=== PATIENT | male | born 1940 | race Caucasian/White ===

== ENCOUNTER 2016-09-25 13:43 | Inpatient (IN) | payer OTHER, MEDICARE ==
[~2016-09-25] VITALS: Ht 182.9 cm; Wt 128.3 kg
[2016-09-25 14:46] LABS: EOSINOPHIL (%) 0.1 % (0-5); HEMATOCRIT 38.8 % (38.0-50.0); IMMATURE GRANULOCYTE (%) 0.3 % (0.0-0.7); IMMATURE GRANULOCYTE COUNT 0.5 K/uL; LYMPHOCYTE COUNT 0.9 K/uL (1.0-2.8); MCH 28.7 PG (29.0-34.0); MCHC 32.2 G/DL (30.0-36.0); MEAN PLAT.VOLUME 10.9 uM^3 (9.0-12.4); MONOCYTE (%) 7.2 % (3-12); MONOCYTE COUNT 1.3 K/uL (0-0.8); NEUTROPHIL (%) 87.6 % (45-76); PLATELET COUNT 175 K/uL (156-360); RBC DIS.WIDTH-CV 13.7 % (11.8-14.6); RBC DIS.WIDTH-SD 43.4 % (39-53); RED BLOOD COUNT 4.36 M/uL (4.00-5.50); WHITE BLOOD COUNT 18.2 K/uL (4.1-10.2)
[2016-09-25 14:56] LABS: CHLORIDE 93 mEq/L (99-109); POTASSIUM 4.9 mEq/L (3.7-5.4); SODIUM 132 mEq/L (136-147)
[2016-09-25 14:58] LABS: GLUCOSE 287 mg/dL (70-99)
[2016-09-25 14:59] LABS: GLUCOSE (STRIP) 100; KETONES 40
[2016-09-25 14:59] LABS: ANION GAP 12 MEQ/L (2-14)
[2016-09-25 15:02] LABS: GFR ESTIMATE (CALCULATED) > 59 mL/min/
[2016-09-25 15:03] LABS: UREA NITROGEN (BUN) 21 mg/dL (9-23)
[2016-09-25 15:14] LABS: ADD MIUA? YES; BILIRUBIN LARGE; BLOOD LARGE; COLOR RED ((YELLOW)); LEUKOCYTES LARGE; NITRITE POSITIVE; PROTEIN (STRIP) 300; SPECIFIC GRAVITY 1.028 (1.000-1.030)
[2016-09-25 15:34] LABS: ICTOTEST NEGATIVE
[2016-09-25 15:35] LABS: RED BLOOD CELLS TNTC /HPF (0-5); UCUL ADDED? YES
[2016-09-25] MEDS ORDERED: METOPROLOL TART50 MG PO (17:27)
[2016-09-25] MEDS ORDERED: HUMULIN N100 UNITS/ SC (17:27)
[2016-09-25] MEDS ORDERED: AMLODIPINE-BEN1 EAC3 PO (17:27)
[2016-09-25] MEDS ORDERED: PROAIR HFA8.5 GM IH (17:28)
[2016-09-25] MEDS ORDERED: CLARITIN,ALAVAR10 MG PO (17:28)
[2016-09-25] MEDS ORDERED: ASPIR-TRIN325 M1 PO (17:28)
[2016-09-25] MEDS ORDERED: ATORVASTATIN CA20 MG PO (17:28)
[2016-09-25 19:24] LABS: TOTAL BILIRUBIN 1.6 mg/dL (0.0-1.0)
[2016-09-25 19:25] LABS: ALKALINE PHOSPHATASE 114 IU/L (3-129)
[2016-09-25 19:27] LABS: DIRECT BILIRUBIN 0.7 mg/dL (0.0-0.3)
[2016-09-25 22:25] VITALS: BP 136/64
[2016-09-26 06:56] LABS: EOSINOPHIL (%) 0.5 % (0-5); HEMATOCRIT 32.3 % (38.0-50.0); IMMATURE GRANULOCYTE (%) 0.1 % (0.0-0.7); LYMPHOCYTE COUNT 1.2 K/uL (1.0-2.8); MCH 28.5 PG (29.0-34.0); MCHC 31.9 G/DL (30.0-36.0); MCV 89.5 FL (86-99); MEAN PLAT.VOLUME 11.6 uM^3 (9.0-12.4); MONOCYTE (%) 13.2 % (3-12); MONOCYTE COUNT 1.1 K/uL (0-0.8); NEUTROPHIL (%) 70.8 % (45-76); NEUTROPHIL COUNT 5.6 K/uL (1.8-6.4); PLATELET COUNT 180 K/uL (156-360); RBC DIS.WIDTH-CV 13.8 % (11.8-14.6); RBC DIS.WIDTH-SD 45.2 % (39-53); RED BLOOD COUNT 3.61 M/uL (4.00-5.50)
[2016-09-26 07:14] LABS: ALKALINE PHOSPHATASE 80 IU/L (3-129); ANION GAP 10 MEQ/L (2-14); CHLORIDE 102 MEQ/L (99-109); DIRECT BILIRUBIN 0.2 mg/dL (0.0-0.3); GFR ESTIMATE (CALCULATED) > 59 mL/min/; GLUCOSE 224 mg/dL (70-99); POTASSIUM 4.1 MEQ/L (3.7-5.4); SAMPLE HEMOLYSIS CHECK 0; SAMPLE ICTERIC CHECK 0; SAMPLE LIPEMIA CHECK 0; SODIUM 138 MEQ/L (136-147); TOTAL BILIRUBIN 0.7 MG/DL (0.0-1.0); UREA NITROGEN (BUN) 16 mg/dL (9-23)
[2016-09-26 07:55] VITALS: BP 131/63
[2016-09-26 11:53] VITALS: BP 148/87
[2016-09-26 16:46] LABS: POINT-OF-CARE METER ID UU13113725
[2016-09-26 16:52] VITALS: BP 121/61
[2016-09-26 21:52] VITALS: BP 144/66
[2016-09-26 23:54] VITALS: BP 121/65
[2016-09-27 06:19] LABS: POINT-OF-CARE METER ID UU13113725
[2016-09-27 08:33] VITALS: BP 126/62
[2016-09-27 12:07] LABS: HEMATOCRIT 34.2 % (38.0-50.0); MCH 28.9 PG (29.0-34.0); MCHC 32.2 G/DL (30.0-36.0); MEAN PLAT.VOLUME 10.8 uM^3 (9.0-12.4); PLATELET COUNT 186 K/uL (156-360); RBC DIS.WIDTH-CV 13.7 % (11.8-14.6); RBC DIS.WIDTH-SD 45.4 % (39-53); WHITE BLOOD COUNT 5.4 K/uL (4.1-10.2)
[2016-09-27] MEDS ORDERED: TAMSULOSIN HCL0.4 MG PO (12:41)
[2016-09-27] MEDS ORDERED: CEFTIN500 MG PO (12:41)
[2016-09-27] MEDS ORDERED: FINASTERIDE5 MG PO (12:41)
[2016-09-27 12:48] LABS: ANION GAP 11 MEQ/L (2-14); CHLORIDE 99 MEQ/L (99-109); GFR ESTIMATE (CALCULATED) > 59 mL/min/; GLUCOSE 253 mg/dL (70-99); POTASSIUM 4.5 MEQ/L (3.7-5.4); SAMPLE HEMOLYSIS CHECK 1; SAMPLE ICTERIC CHECK 0; SAMPLE LIPEMIA CHECK 0; SODIUM 138 MEQ/L (136-147); UREA NITROGEN (BUN) 7 mg/dL (9-23)
[2016-09-29 10:02] LABS: POINT-OF-CARE METER ID UU13113725
== END 2016-09-27 14:42 | disposition home or self-care (01) | DRG 690 ==
LOC: EME 13:43 → EDOF 19:29 → 5EAST 22:15
PROVIDERS: Family Medicine; Internal Medicine
DX: N39.0 Urinary tract infection, site not specified (principal); E87.1 Hypo-osmolality and hyponatremia; R78.81 Bacteremia; B96.20 Unspecified Escherichia coli [E. coli] as the cause of diseases classified elsewhere; R31.0 Gross hematuria; N40.0 Benign prostatic hyperplasia without lower urinary tract symptoms; N42.89 Other specified disorders of prostate; E11.9 Type 2 diabetes mellitus without complications; I10 Essential (primary) hypertension; E78.5 Hyperlipidemia, unspecified; J44.9 Chronic obstructive pulmonary disease, unspecified; L30.4 Erythema intertrigo; R59.1 Generalized enlarged lymph nodes; E66.9 Obesity, unspecified; Z79.82 Long term (current) use of aspirin; Z87.891 Personal history of nicotine dependence; Z79.4 Long term (current) use of insulin; Z68.38 Body mass index [BMI] 38.0-38.9, adult
CPT/HCPCS: 74176; 80048; 80076; 81003; 82948; 83605; 85025; 85027; 87040; 87077; 87086; 87186; 87801; 94640; 99202; 99281; 99284; G0103; J0696; J1815; J7030; J7050

== ENCOUNTER 2016-11-11 20:21 | Observation (INO) | payer OTHER, MEDICARE ==
[~2016-11-11] VITALS: Ht 182.9 cm; Wt 127.0 kg
[~2016-11-11 20:21] MED LIST: AMLODIPINE-BEN1 EAC3 PO; ASPIR-TRIN325 M1 PO; ATORVASTATIN CA20 MG PO; CEFTIN500 MG PO; CLARITIN,ALAVAR10 MG PO; FINASTERIDE5 MG PO; HUMULIN N100 UNITS/ SC; METOPROLOL TART50 MG PO; PROAIR HFA8.5 GM IH; TAMSULOSIN HCL0.4 MG PO
[2016-11-11 20:56] LABS: EOSINOPHIL (%) 0.6 % (0-5); EOSINOPHIL COUNT 0.1 K/uL (0-0.3); HEMATOCRIT 36.8 % (38.0-50.0); IMMATURE GRANULOCYTE (%) 0.1 % (0.0-0.7); IMMATURE GRANULOCYTE COUNT 0.1 K/uL; LYMPHOCYTE COUNT 0.9 K/uL (1.0-2.8); MCH 27.9 PG (29.0-34.0); MCHC 32.9 G/DL (30.0-36.0); MONOCYTE (%) 8.4 % (3-12); MONOCYTE COUNT 0.8 K/uL (0-0.8); NEUTROPHIL (%) 81.4 % (45-76); NEUTROPHIL COUNT 8.1 K/uL (1.8-6.4); PLATELET COUNT 183 K/uL (156-360); RBC DIS.WIDTH-SD 39.4 % (39-53); RED BLOOD COUNT 4.33 M/uL (4.00-5.50)
[2016-11-11 21:06] LABS: CHLORIDE 99 mEq/L (99-109); POTASSIUM 4.2 mEq/L (3.7-5.4); SODIUM 135 mEq/L (136-147)
[2016-11-11 21:08] LABS: GLUCOSE 251 mg/dL (70-99)
[2016-11-11 21:09] LABS: ANION GAP 13 MEQ/L (2-14)
[2016-11-11 21:10] LABS: TOTAL BILIRUBIN 0.8 mg/dL (0.0-1.0)
[2016-11-11 21:11] LABS: ALKALINE PHOSPHATASE 107 IU/L (3-129); INTER. NORMALIZED RATIO 1.1; PROTHROMBIN TIME 11.6 (9.2-11.2); PTT 24.3 (25-32)
[2016-11-11 21:12] LABS: GFR ESTIMATE (CALCULATED) > 59 mL/min/
[2016-11-11 21:13] LABS: UREA NITROGEN (BUN) 19 mg/dL (9-23)
[2016-11-11 21:16] LABS: TROP-I INTERPRETATION NEGATIVE; TROPONIN-I < 0.01 ng/mL (0.0-0.30)
[2016-11-12 03:29] LABS: HEMATOCRIT 33.8 % (38.0-50.0); MCH 27.5 PG (29.0-34.0); MCHC 32.2 G/DL (30.0-36.0); MCV 85.4 FL (86-99); MEAN PLAT.VOLUME 10.9 uM^3 (9.0-12.4); PLATELET COUNT 172 K/uL (156-360); RBC DIS.WIDTH-SD 39.7 % (39-53); RED BLOOD COUNT 3.96 M/uL (4.00-5.50); WHITE BLOOD COUNT 10.7 K/uL (4.1-10.2)
[2016-11-12 03:56] LABS: TROP-I INTERPRETATION NEGATIVE; TROPONIN-I < 0.01 ng/mL (0.0-0.30)
[2016-11-12 06:26] LABS: POINT-OF-CARE METER ID UU14100415
[2016-11-12 08:31] LABS: POINT-OF-CARE METER ID UU14100415
[2016-11-12 09:27] LABS: TROP-I INTERPRETATION NEGATIVE; TROPONIN-I < 0.01 ng/mL (0.0-0.30)
[2016-11-12] MEDS ORDERED: ATORVASTATIN CA20 MG PO (09:49)
[2016-11-12] MEDS ORDERED: AMLODIPINE-BEN1 EAC3 PO (09:52)
[2016-11-12] MEDS ORDERED: TAMSULOSIN HCL0.4 MG PO (09:52)
[2016-11-12] MEDS ORDERED: FINASTERIDE5 MG PO (09:52)
[2016-11-12] MEDS ORDERED: HUMULIN N100 UNITS/ SC (09:53)
[2016-11-12] MEDS ORDERED: PROAIR HFA8.5 GM IH (09:54)
[2016-11-12] MEDS ORDERED: LOPRESSOR50 MG PO (09:54)
[2016-11-12] MEDS ORDERED: MIRALAX255 GM PO (09:56)
[2016-11-12] MEDS ORDERED: CLOBETASOL PROP60 GM TP (09:56)
[2016-11-12] MEDS ORDERED: TYLENOL EXTRA500 MG PO (09:56)
[2016-11-12] MEDS ORDERED: CIPRO500 MG PO (11:39)
[2016-11-12 13:26] VITALS: BP 139/59
== END 2016-11-12 13:25 | disposition home or self-care (01) ==
LOC: EME 20:21 → EDOF 22:34
PROVIDERS: Emergency Medicine; Internal Medicine; Physician Assistant
DX: R31.0 Gross hematuria (principal); N40.0 Benign prostatic hyperplasia without lower urinary tract symptoms; N39.0 Urinary tract infection, site not specified; B96.20 Unspecified Escherichia coli [E. coli] as the cause of diseases classified elsewhere; Z87.440 Personal history of urinary (tract) infections; R10.2 Pelvic and perineal pain; R55 Syncope and collapse; I10 Essential (primary) hypertension; E11.9 Type 2 diabetes mellitus without complications; J44.9 Chronic obstructive pulmonary disease, unspecified; Z79.82 Long term (current) use of aspirin; Z88.8 Allergy status to other drugs, medicaments and biological substances; Z87.891 Personal history of nicotine dependence; Z80.8 Family history of malignant neoplasm of other organs or systems
CPT/HCPCS: 71010; 80053; 81003; 82948; 84484; 85025; 85027; 85610; 85730; 86850; 86900; 86901; 93005; 99281; 99285; G0378; J1815; J7030

== ENCOUNTER → 2016-11-16 | Outpatient (CLI) | payer MEDICARE ==
[~2016-11-16] MED LIST changes: +CIPRO500 MG PO; +CLOBETASOL PROP60 GM TP; +LOPRESSOR50 MG PO; +MIRALAX255 GM PO; +TYLENOL EXTRA500 MG PO
== END | disposition home or self-care (01) ==
LOC: CDC 12:31
DX: Z01.810 Encounter for preprocedural cardiovascular examination (principal); R31.0 Gross hematuria; Z87.440 Personal history of urinary (tract) infections
CPT/HCPCS: 93000

== ENCOUNTER 2016-11-19 17:08 | Emergency (ER) | payer OTHER, MEDICARE ==
[~2016-11-19] VITALS: Ht 182.9 cm; Wt 126.9 kg
[2016-11-19 18:23] VITALS: BP 139/66
== END 2016-11-19 18:42 | disposition home or self-care (01) ==
LOC: EME 17:08
PROC: 0T9B70Z Drainage of Bladder with Drainage Device, Via Natural or Artificial Opening (ICD-10-PCS; principal; 2016-11-19)
DX: R33.9 Retention of urine, unspecified (principal); Z98.890 Other specified postprocedural states; I10 Essential (primary) hypertension; E11.9 Type 2 diabetes mellitus without complications; E78.5 Hyperlipidemia, unspecified; J44.9 Chronic obstructive pulmonary disease, unspecified; Z79.4 Long term (current) use of insulin; Z87.891 Personal history of nicotine dependence
CPT/HCPCS: 99281; 99284

== ENCOUNTER 2016-12-10 07:52 | Day surgery (SDC) | payer OTHER, MEDICARE ==
[~2016-12-10] VITALS: Ht 182.9 cm; Wt 123.3 kg
[2016-12-10 08:26] LABS: POINT-OF-CARE METER ID UU14174212
[2016-12-10 08:43] VITALS: BP 131/66
[2016-12-10] MEDS ORDERED: DOCUSATE SODIU100 MG PO (12:35)
[2016-12-10] MEDS ORDERED: ENDOCET 5-3251 EACH PO (12:35)
[2016-12-10] MEDS ORDERED: CLOTRIMAZOLE-BE15 GM TP (12:35)
[2016-12-10] MEDS ORDERED: CIPRO500 MG PO (12:45)
[2016-12-10 13:22] LABS: POINT-OF-CARE METER ID UU13113675; POINT-OF-CARE USER ID 515036437
[2016-12-10 13:29] VITALS: BP 129/63
[2016-12-10 15:00] LABS: HEMATOCRIT 33.1 % (38.0-50.0); MCHC 30.5 G/DL (30.0-36.0); MCV 85.3 FL (86-99); MEAN PLAT.VOLUME 11.1 uM^3 (9.0-12.4); PLATELET COUNT 143 K/uL (156-360); RBC DIS.WIDTH-CV 13.4 % (11.8-14.6); RBC DIS.WIDTH-SD 42.2 % (39-53); RED BLOOD COUNT 3.88 M/uL (4.00-5.50)
[2016-12-10 15:23] LABS: ANION GAP 7 MEQ/L (2-14); CHLORIDE 103 MEQ/L (99-109); GFR ESTIMATE (CALCULATED) > 59 mL/min/; GLUCOSE 244 mg/dL (70-99); POTASSIUM 4.7 MEQ/L (3.7-5.4); SAMPLE HEMOLYSIS CHECK 0; SAMPLE ICTERIC CHECK 0; SAMPLE LIPEMIA CHECK 0; SODIUM 139 MEQ/L (136-147); UREA NITROGEN (BUN) 13 mg/dL (9-23)
[2016-12-10 16:15] LABS: WHITE BLOOD COUNT 6.6 K/uL (4.1-10.2)
[2016-12-10 16:59] VITALS: BP 137/64
[2016-12-10 19:00] VITALS: BP 116/57
[2016-12-10 22:49] LABS: POINT-OF-CARE METER ID UU14162508
[2016-12-11] VITALS: BP 98/60
[2016-12-11 04:00] VITALS: BP 118/62
[2016-12-11 08:14] VITALS: BP 122/57
== END 2016-12-11 10:25 | disposition home or self-care (01) ==
LOC: SDC 07:52 → 2EAST 11:53 → 2SOUTH 11:53 → 2EAST 13:11 → SDC 14:37 → 2EAST 12-11 10:25
PROVIDERS: Urology
PROC: 0VT08ZZ Resection of Prostate, Via Natural or Artificial Opening Endoscopic (ICD-10-PCS; principal; 2016-12-10)
DX: N40.1 Benign prostatic hyperplasia with lower urinary tract symptoms (principal); R39.14 Feeling of incomplete bladder emptying; N13.8 Other obstructive and reflux uropathy; N32.0 Bladder-neck obstruction; R31.0 Gross hematuria; N39.0 Urinary tract infection, site not specified; B96.20 Unspecified Escherichia coli [E. coli] as the cause of diseases classified elsewhere; E11.9 Type 2 diabetes mellitus without complications; J44.9 Chronic obstructive pulmonary disease, unspecified; E78.5 Hyperlipidemia, unspecified; Z87.891 Personal history of nicotine dependence; Z79.4 Long term (current) use of insulin; Z98.61 Coronary angioplasty status; Z79.82 Long term (current) use of aspirin
CPT/HCPCS: 80048; 82948; 85027; 88305; 94799; 99202; G0378; J0290; J1580; J1815; J2250; J2405; J3010; J7030; J7050